=== PATIENT | male | born 1955 | race Caucasian/White ===

== ENCOUNTER 2016-12-16 08:41 | Day surgery (SDC) | payer BC ==
--- NOTE | 2016-12-16 17:25 | NUR ---
WILLA 1110: RN IN TO ASSIST W/BIOPTY BIOPSY. PT TOLERATES PROCEDURE WELL AND IS DC HOME AMBULATORY AFTER VERBAL DC INSTRUCTIONS ARE GIVEN.
--- NOTE | 2016-12-20 08:06 | OR ---
[facility] [address], [place] [address] Signed DATE OF OPERATION: 12/16/2016 SURGEON: Meche Rodgers MD PREOPERATIVE DIAGNOSIS: Left pectoral soft tissue mass (giant). 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 PROCEDURE: Core biopsy of left chest wall mass. SURGEON: Meche Rodgers MD ANESTHESIA: 1% lidocaine with epinephrine. INDICATION: This 61-year-old white man is a patient of Dr. Blade Andersen, in [facility]. In 2010, he had a soft tissue mass to his left parasternal area for which ultrasound was performed at [facility] showing a 3 cm "lipoma." Over the time, the mass was enlarged. He has had increasing symptoms from it recently and was recognized by Dr. Andersen as having a very dense, very large left pectoral mass for which he was referred for further evaluation. Clinical appearance of the mass was consistent with sarcoma. A CT scan of the chest and abdomen was performed by mo recently, which confirmed the mass to be invasive to the sternum and intercostal spaces directly over the area of the heart. The mass is at least 19 cm in length and certainly is largest by hand spread open. It is quite dense and firm and certainly not mobile. He will be referred for definitive excision of the mass, which was almost certainly a sarcoma. A core biopsy will be obtained at this time to better guide treatment decisions and assess its histologic type. Most likely is malignant, but the possibility of a benign soft tissue mass remains. The risks of bleeding, infection so forth were reviewed with the patient. He understands and wished to proceed as I have described. FINDINGS: A dense mass was easily biopsied, 5 good cores of tissue were obtained. The puncture site was in the lateral aspect inferiorly. There was no untoward bleeding. Electronically Signed By: MECHE RODGERS MD 12/20/16 08 PATIENT NAME: GENE LEA OPERATIVE REPORT DATE OF : 59 PHYSICIAN: MECHE RODGERS MD REPORT #: [id number] REPORT IS CONFIDENTIAL AND NOT TO BE RELEASED WITHOUT AUTHORIZATION [facility] [address], [place] [address] Signed DESCRIPTION OF PROCEDURE: The patient was placed in the supine position in the day surgery area and the left pectoralis prepared with a chlorhexidine solution and draped sterilely. 1% lidocaine was injected locally. A small puncture incision was made with the tip of an 11-blade in the lateral inferior aspect of the mass. Using a bioptic and core biopsy device, a 14-gauge needle, 5 core biopsies were obtained. There was minimal bleeding. Good core specimens were obtained. The Band-Aid was applied. MD TOMAS Au/MODL /[id number] cc: Blade Andersen MD Electronically Signed By: MECHE RODGERS MD 12/20/16 0806 PATIENT NAME: GENE LEA OPERATIVE REPORT DATE OF : 59 PHYSICIAN: MECHE RODGERS MD REPORT #: [id number] REPORT IS CONFIDENTIAL AND NOT TO BE RELEASED WITHOUT AUTHORIZATION
[2017-02-11] MEDS ORDERED: ZOFRAN ODT8 MG PO (08:57)
[2017-02-11] MEDS ORDERED: PREDNISONE10 MG PO (08:57)
[2017-02-11] MEDS ORDERED: PROCHLORPERAZIN10 MG PO (08:59)
== END 2016-12-16 18:00 | disposition home or self-care (01) ==
LOC: DS 08:41 → EDSTATUS 10:00 → DS 18:00
PROC: 0KBJ3ZX Excision of Left Thorax Muscle, Percutaneous Approach, Diagnostic (ICD-10-PCS; principal; 2016-12-16)
DX: C85.12 Unspecified B-cell lymphoma, intrathoracic lymph nodes (principal); Z87.19 Personal history of other diseases of the digestive system; Z98.890 Other specified postprocedural states

== ENCOUNTER 2017-01-07 11:17 | Day surgery (SDC) | payer BC ==
[~2017-01-07] VITALS: Ht 182.9 cm; Wt 118.4 kg
--- NOTE | 2017-01-07 12:40 | NUR ---
01/07/17 Denny0 Amanda Weston 4568-PATIENT TRANSITIONED TO PACU CARE. PATIENT DROWSY AROUSABLE. 4L NC O2 SAT 99% PATIENT LAYING ON STOMACH USUALLY HAS PAIN IN AREA BUT FEELS COMFORTABLE. DRESSING TO RIGHT POSTERIOR BACK CDI WITH BANDAID.
--- NOTE | 2017-01-14 10:13 | OR ---
[facility] [address] [place] [place] [address] Signed DATE OF OPERATION: 01/07/2017 SURGEON: Lloyd Winkler MD PROCEDURE: Left posterior iliac crest bone marrow biopsy and aspirate. DESCRIPTION OF PROCEDURE: After explaining the risks, benefits, and alternatives to bone marrow biopsy and aspiration under conscious sedation for staging of diffuse large B-cell lymphoma and obtaining an informed written consent, the patient was brought to a private area of the postanesthesia recovery unit, where a time-out was taken and the patient and procedure were correctly identified. He was placed in the prone position. The left posterior iliac crest was prepped and draped in the usual sterile manner. Conscious sedation was supplied by SOULEYMANE Liriano with 100 mcg of intravenous fentanyl and 3 mg of intravenous midazolam. Local anesthesia was obtained over the left posterior iliac crest with 1 mL of 1% lidocaine and a left posterior iliac crest bone marrow biopsy and aspirate were obtained without adverse affects. Lloyd Winkler MD RCQ/MODL /[id number] Electronically Signed By: LLOYD WINKLER MD 01/14/17 1013 PATIENT NAME: GENE LEA OPERATIVE REPORT DATE OF : 59 PHYSICIAN: LLOYD WINKLER MD REPORT #: [id number] REPORT IS CONFIDENTIAL AND NOT TO BE RELEASED WITHOUT AUTHORIZATION
[2017-02-11] MEDS ORDERED: PREDNISONE10 MG PO (08:57)
[2017-02-11] MEDS ORDERED: ZOFRAN ODT8 MG PO (08:57)
[2017-02-11] MEDS ORDERED: PROCHLORPERAZIN10 MG PO (08:59)
== END 2017-01-07 13:25 | disposition home or self-care (01) ==
LOC: DS 11:17
PROVIDERS: Specialist
PROC: 07DR3ZX Extraction of Iliac Bone Marrow, Percutaneous Approach, Diagnostic (ICD-10-PCS; principal; 2017-01-07 12:00)
DX: C83.32 Diffuse large B-cell lymphoma, intrathoracic lymph nodes (principal); Z98.890 Other specified postprocedural states
CPT/HCPCS: 80053; 82232; 83615; 85025; 99152; J2250; J3010; J7120

== ENCOUNTER 2017-01-14 06:50 | Day surgery (SDC) | payer BC ==
[~2017-01-14] VITALS: Ht 182.9 cm; Wt 113.4 kg
[2017-01-14] MEDS ORDERED: IBUPROFEN600 MG PO (09:58)
[2017-01-14] MEDS ORDERED: MAPAP325 MG PO (09:58)
[2017-01-14] MEDS ORDERED: OXYCODON-ACETA1 EAC2 PO (09:58)
--- NOTE | 2017-01-17 08:56 | OR ---
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 POSTOPERATIVE DIAGNOSIS: Chest wall lymphoma (mantle cell type). PROCEDURE: 1. Left subclavian Port-A-Cath placement. 2. Surgeon-directed fluoroscopy. SURGEON: Meche Rodgers MD ANESTHESIA: Local with monitored anesthesia care, Chris Wright CRNA and local anesthetic, 10 mL of 0.25% Marcaine with epinephrine. INDICATION: This 61-year-old white man is a patient of Dr. Blade Andersen from [place], [place]. He was noted to have a large chest wall mass in the left parasternal border area. This was highly suggestive to me of sarcoma. It was at least the size of my outstretched hand. A CT scan was performed confirming the mass eroding through the parasternal tissue, ribs and so forth. A core biopsy was performed, but proved not to be a sarcoma at all, but rather a mantle cell lymphoma. He has been seen by Dr. Marin and bone marrow biopsy obtained and other imaging studies undertaken as well. He is anticipating chemotherapy and possibly radiation therapy depending on staging. He is admitted at this time to undergo Port-A-Cath placement. Understand the risks of bleeding, infection, pneumothorax, failure of the device and other unforeseen complications. Understanding this, he wished to proceed. FINDINGS: Dark nonpulsatile blood was noted from the left subclavian vein. The catheter was placed without problem. The tip of the catheter was in the superior vena cava. Good function is noted with percutaneous access via the Amaya needle. A postprocedure chest x-ray was performed and was normal. Electronically Signed By: MECHE RODGERS MD 01/17/17 0856 PATIENT NAME: GENE LEA OPERATIVE REPORT DATE OF : 59 PHYSICIAN: MECHE RODGERS MD REPORT #: [id number] REPORT IS CONFIDENTIAL AND NOT TO BE RELEASED WITHOUT AUTHORIZATION [facility] [address] [place], [place] [address] Signed DESCRIPTION OF PROCEDURE: The patient was brought to the operating room, placed in supine position with the head turned to the right. The upper torso and neck were prepared with a chlorhexidine solution and draped sterilely. A 0.25% Marcaine with epinephrine was injected in the left infraclavicular space. Using the Seldinger technique, the left subclavian vein was easily accessed showing dark nonpulsatile blood. A flexible J-wire was passed down the needle. The needle was removed. Fluoroscopy was then performed, which confirmed the wire to be in the right heart system. Local anesthetic was injected transversely over the left pectoralis well away from the neoplasm area itself. A transverse incision was made and using blunt electrocautery dissection, the pocket was created using electrocautery. The site from which the wire emanated was incised with an 11-blade, dilated and subsequently dilator and peel-away sheath introducer passed over the wire. The wire and the dilator were removed showing vigorous retrograde nonpulsatile bleeding. A previously inspected and irrigated white Port-A-Cath single-lumen catheter was passed down the sheath, stabilized at the skin level and the peel-away introducer removed showing both portions to be equal in size. Aspiration on the catheter showed good return of blood and easy flushing. Under surgeon directed fluoroscopy, the catheter was withdrawn to the area of the superior vena cava. Small amount of contrast was used to infuse and confirm it. A tunneling device was used to deliver the catheter to the pocket. The catheter was trimmed to the appropriate length and secured per manufacture's instructions to the metal port device. It was secured well. Once completely secured, the catheter was secured to the pectoralis fascia with interrupted 2-0 Vicryl suture. The pocket was then closed with interrupted 2-0 Vicryl as well. The skin was closed with running subcuticular 3-0 Vicryl. Steri-Strips were applied to each site. Access of the port device with an angled Amaya needle showed easy withdrawal of blood and easy infusion of heparinized saline solution. A recovery room post procedure chest x-ray showed the tip of the catheter in the superior vena cava optimally placed. The wound was managed with Steri-Strips and a Mepilex silver sponge dressing and an OpSite. The catheter can be used at any time. Electronically Signed By: MECHE RODGERS MD 01/17/17 0856 PATIENT NAME: GENE LEA OPERATIVE REPORT DATE OF : 59 PHYSICIAN: MECHE RODGERS MD REPORT #: [id number] REPORT IS CONFIDENTIAL AND NOT TO BE RELEASED WITHOUT AUTHORIZATION [address] [address] Signed Meche Rodgers MD JM/MODL /[id number] cc: MD Luis Garcia MD Electronically Signed By: MECHE RODGERS MD 01/17/17 0856 PATIENT NAME: GENE LEA OPERATIVE REPORT DATE OF : 59 PHYSICIAN: MECHE RODGERS MD REPORT #: [id number] REPORT IS CONFIDENTIAL AND NOT TO BE RELEASED WITHOUT AUTHORIZATION
[2017-02-11] MEDS ORDERED: ZOFRAN ODT8 MG PO (08:57)
[2017-02-11] MEDS ORDERED: PREDNISONE10 MG PO (08:57)
[2017-02-11] MEDS ORDERED: PROCHLORPERAZIN10 MG PO (08:59)
== END 2017-01-14 11:05 | disposition home or self-care (01) ==
LOC: OPS 06:50 → DS 06:50 → OPS 08:45 → DS 10:45 → OPS 10:45
PROVIDERS: Surgery
PROC: B517YZA Fluoroscopy of Left Subclavian Vein using Other Contrast, Guidance (ICD-10-PCS; 2017-01-14)
PROC: 3E03305 Introduction of Other Antineoplastic into Peripheral Vein, Percutaneous Approach (ICD-10-PCS; 2017-01-14)
PROC: 05H633Z Insertion of Infusion Device into Left Subclavian Vein, Percutaneous Approach (ICD-10-PCS; principal; 2017-01-14 08:45)
DX: C83.10 Mantle cell lymphoma, unspecified site (principal); Z87.19 Personal history of other diseases of the digestive system; Z98.890 Other specified postprocedural states
CPT/HCPCS: 00532; 71010; 77001; J0690; J1644; J2704; J3010; J7120

== ENCOUNTER 2017-02-19 11:32 | Emergency (ER) | payer BC ==
[~2017-02-19] VITALS: Ht 182.9 cm; Wt 117.9 kg
[~2017-02-19 11:32] MED LIST: IBUPROFEN600 MG PO; MAPAP325 MG PO; OXYCODON-ACETA1 EAC2 PO; PREDNISONE10 MG PO; PROCHLORPERAZIN10 MG PO; ZOFRAN ODT8 MG PO
[2017-02-19] MEDS ORDERED: LOVENOX120 MG SUB-Q (14:43)
[2017-02-19] MEDS ORDERED: NORCO 5-325 TA1 EACH PO (14:43)
[2017-03-01] MEDS ORDERED: WARFARIN SODIUM5 MG PO (10:41)
[2017-03-11] MEDS ORDERED: ELIQUIS5 MG PO (08:59)
[2017-04-01] MEDS ORDERED: ONDANSETRON ODT8 MG PO (08:51)
[2017-04-01] MEDS ORDERED: PREDNISONE20 MG PO (08:53)
[2017-05-27] MEDS ORDERED: LEVAQUIN750 MG PO (13:58)
== END 2017-02-19 14:51 | disposition home or self-care (01) ==
LOC: ED 11:32
DX: I82.622 Acute embolism and thrombosis of deep veins of left upper extremity (principal); Z98.890 Other specified postprocedural states; Z91.018 Allergy to other foods; Z79.899 Other long term (current) drug therapy; Z79.52 Long term (current) use of systemic steroids
CPT/HCPCS: 71046; 80053; 85025; 85610; 85730; 93971; 96360; 96372; 99284; J1650; J7030

== ENCOUNTER 2025-01-29 05:37 | Day surgery (SDC) | payer MEDICARE, BC ==
[~2025-01-29] VITALS: Ht 182.9 cm; Wt 118.0 kg
[~2025-01-29 05:37] MED LIST changes: +ELIQUIS5 MG PO; +FERROUS SULFAT325 M2 PO; +LACTATED RINGER'S 1,000 ML IV SCH; +LEVAQUIN750 MG PO; +LOVENOX120 MG SUB-Q; +NORCO 5-325 TA1 EACH PO; +ONDANSETRON ODT8 MG PO; +PREDNISOLONE5 MG PO; +PREDNISONE20 MG PO; +WARFARIN SODIUM5 MG PO
[2025-01-29 06:01] VITALS: BP 110/67
[2025-01-29 06:41] LABS: BASOPHILS 0.8 % (0.2-1.2); BASOPHILS, ABSOLUTE 0.09 K/uL (0.01-0.08); EOSINOPHILS 4.7 % (0.8-7.0); EOSINOPHILS, ABSOLUTE 0.55 K/uL (0.04-0.54); LYMPHOCYTES 14.0 % (21.8-53.1); MCH 19.3 PG (25.7-32.2); MCHC 28.3 g/dL (32.3-36.5); MCV 68.3 fL (79.0-92.2); MONOCYTES 9.1 % (5.3-12.2); MONOCYTES, ABSOLUTE 1.07 K/uL (0.30-0.82); NEUTROPHILS 70.9 % (34.0-67.9); NEUTROPHILS, ABSOLUTE 8.39 K/uL (1.78-5.38); RBC 3.94 M/uL (4.63-6.08)
[2025-01-29] MEDS ORDERED: IBLOOD GLUCOSE TEST STRIP 1 EA TEST VI PRN ×2 (07:00→12:30)
[2025-01-29] MEDS ORDERED: HEParin SOD (PORCINE) 5,000 UNIT/ML SDV SUB-Q SCH (07:00)
[2025-01-29] MEDS ORDERED: LIDOCAINE HCL 1% 5 ML SDV INJ ONE (07:00)
[2025-01-29] MEDS ORDERED: CEFAZOLIN SODIUM 2 GM in SODIUM CHLORIDE 0.9% 100 ML IV SCH (07:00)
[2025-01-29] MEDS ORDERED: SODIUM CHLORIDE 0.9% 500 ML IV ONE (07:36)
--- NOTE | 2025-01-29 07:43 | NUR ---
PT AND PT UDPATED ON POC. PT AGREEABLE AT THIS TIME. MOVED TO A CLOSER ROOM TO NURSE STATION FOR OBSERVATION D/T THIS BEING FIRST BLOOD TRANSFUSION.
[2025-01-29 07:59] LABS: ABO A; RH POSITIVE
[2025-01-29 08:05] LABS: ABO A; ANTIBODY SCREEN NEGATIVE; IS CROSSMATCH COMPATIBLE; RH POSITIVE
--- NOTE | 2025-01-29 08:05 | NUR ---
VO RECEIVED FROM KOBY BRO FOR PREMEDICATION FOR BLOOD TRANSFUSION W/IV BENEDRYL. ORDER PLACED AND GIVEN.
--- NOTE | 2025-01-29 08:47 | NUR ---
PT BLOOD TRANSFUSION TITRATED TO 275 ML/HR. PT REPORTS NO SYMPTOMS AT THIS TIME.
--- NOTE | 2025-01-29 09:18 | NUR ---
IV BLOOD TITRATED TO 300 ML/HR, PT REPORTS NO SYMPTOMS.
--- NOTE | 2025-01-29 09:47 | NUR ---
PT 1ST UNIT COMPLETE. PT SITS AT BEDSIDE AND REPORTS NO DIZZINESS/NAUSEA. PT AMBULATES TO BATHROOM W/THIS RN STANDBY ASSIST. PT BACK TO BED W/WARM BLANKETS. PT REPORTS NO FURTHER NEEDS AT THIS TIME. CALL LIGHT WITHIN REACH.
--- NOTE | 2025-01-29 10:19 | NUR ---
2ND UNIT IV BLOOD ADMIN TITRATED TO 275 ML/HR. PT CONTINUES TO REPORT NO SYMPTOMS. CALL LIGHT WITHIN REACH.
--- NOTE | 2025-01-29 10:45 | NUR ---
PT ARRIVES AND UPDATED ON PT POC. PT WAITING IN HALLWAY. PT RESTING W/EYES CLOSED. RESPIRATIONS EVEN AND UNLABORED, NO SIGNS OF DISTRESS. CALL LIGHT WITHIN REACH. DOOR/CURTAIN OPEN. CPOX IN PLACE.
--- NOTE | 2025-01-29 11:43 | NUR ---
PT NOW BACK IN ROOM THAT BLOOD ADMIN AND BLOOD DRAW COMPLETE AT HER PREFERENCE. PT AT BEDSIDE. CALL LIGHT WITHIN REACH. PT AND PT STATE NO FURTHER NEEDS OR QUESTIONS AT THIS TIME.
[2025-01-29 12:00] LABS: BASOPHILS 0.9 % (0.2-1.2); BASOPHILS, ABSOLUTE 0.09 K/uL (0.01-0.08); EOSINOPHILS 5.5 % (0.8-7.0); EOSINOPHILS, ABSOLUTE 0.57 K/uL (0.04-0.54); LYMPHOCYTES 18.0 % (21.8-53.1); MCH 20.8 PG (25.7-32.2); MCHC 29.4 g/dL (32.3-36.5); MCV 70.7 fL (79.0-92.2); MONOCYTES 9.6 % (5.3-12.2); MONOCYTES, ABSOLUTE 1.00 K/uL (0.30-0.82); NEUTROPHILS 65.6 % (34.0-67.9); NEUTROPHILS, ABSOLUTE 6.84 K/uL (1.78-5.38); RBC 4.61 M/uL (4.63-6.08)
[2025-01-29] MEDS ORDERED: DEXAMETHASONE SOD PHOS 4 MG/ML VIAL ONE (12:11)
[2025-01-29] MEDS ORDERED: LIDOCAINE HCL 2% 5 ML SDV ONE (12:11)
[2025-01-29] MEDS ORDERED: ROCURONIUM BROMIDE 50 MG/5 ML SYR ONE (12:11)
[2025-01-29] MEDS ORDERED: fentaNYL citrate 100 MCG/2 ML VIAL ONE (12:11)
[2025-01-29] MEDS ORDERED: fentaNYL citrate 50 MCG/ML SDV IV PRN (12:30)
[2025-01-29] MEDS ORDERED: PROCHLORPERAZINE EDISYLATE 10 MG/2 ML VIAL IV PRN (12:30)
[2025-01-29] MEDS ORDERED: HYDROmorphone HCL 1 MG/ML SYR IV PRN (12:30)
[2025-01-29] MEDS ORDERED: NALOXONE HCL 0.4 MG SYR IV PRN ×2 (12:30→14:15)
[2025-01-29] MEDS ORDERED: SUGAMMADEX SODIUM 200 MG/2 ML ML ONE (13:15)
[2025-01-29 13:32] VITALS: BP 130/72
--- NOTE | 2025-01-29 14:01 | NUR ---
01/29/25 1401 Amanda Weston 1354-PATIENT ARRIVED TO PACU ON 6L MASK NONAROUSABLE ORAL AIRWAY IN PLACE. SR HR 60'S. IVF INFUSING. STERI STRIPS TO ABDOMEN 2 SITES.
[2025-01-29] MEDS ORDERED: OXYCODONE/APAP 7.5/325 TAB PO PRN (14:15)
[2025-01-29] MEDS ORDERED: IBUPROFEN 600 MG TAB PO PRN (14:15)
[2025-01-29] MEDS ORDERED: LACTATED RINGER'S 1,000 ML IV SCH (14:15)
[2025-01-29] MEDS ORDERED: ACETAMINOPHEN 500 MG TAB PO PRN (14:15)
[2025-01-29] MEDS ORDERED: OXYCODON-ACETA1 EAC2 PO (14:20)
[2025-01-29] MEDS ORDERED: ACETAMINOPHEN500 MG PO (14:20)
[2025-01-29] MEDS ORDERED: IBUPROFEN600 MG PO (14:20)
--- NOTE | 2025-01-29 14:45 | NUR ---
PT BACK TO DS FROM PACU VIA STRETCHER. PT IS DROWSY, BUT RESPONSIVE TO VERBAL STIMULI WITHOUT DIFFICULTY. PT AT BEDSIDE. REPORT RECEIVED FROM DEBORAH RN, SITES VISUALIZED W/DEBORAH COMER. PT REPORT PAIN TOLERABLE, BUT ACHEY IN BELLY BUTTON AREA. ICE PACK PROVIDED. SITES REINFORCED WITH GAUZE AND PAPER TAPE. PT TOLERATING SIPS OF ICE WATER WITHOUT DIFFICULTY. CALL LIGHT WITHIN REACH, PT REPORTS NO FURTHER NEEDS OR QUESTIONS AT THIS TIME.
[2025-01-29 14:48] VITALS: BP 114/96
[2025-01-29 15:47] VITALS: BP 113/70
--- NOTE | 2025-01-29 15:55 | NUR ---
IN PT ROOM FOR VS AND ASSESSMENT. PT REPORTS PAIN HAS INCREASED AND WOULD LIKE PRN PAIN MED. PT REPORTS HE DOES NOT WANT OPIOID, AGREED TO PRN TYLENOL. GIVEN (SEE EMAR). PT REPORTS ICE PACK NOT HELPING, REMOVED. PT REPORTS NOT WANTING ANYTHING TO EAT AT THIS TIME OR ANYTHING TO DRINK BESIDES WATER. PT STATES NO URGE TO URINE VOID YET, "BUT GETTING THERE". CALL LIGHT WITHIN REACH, PT AND PT STATE NO FURTHER NEEDS OR QUESTIONS AT THIS TIME.
--- NOTE | 2025-01-29 16:15 | NUR ---
ANSWERED PT CALL LIGHT. PT REPORTS URGE TO URINE VOID. PT SITS AT BEDSIDE AND REPORTS NO DIZZINESS OR NAUSEA. PT STANDS AND THIS RN STANDBY ASSIST TO RESTROOM. PT STATES IT FEELS BETTER FOR HIS PAIN TO STAND UP AND WALK. URINE VOID OF 400 ML CLEAR/YELLOW URINE. PT GETTING DRESSED AT THIS TIME W/ ASSISTANCE. CALL LIGHT WITHIN REACH.
[2025-01-29] MEDS ORDERED: SEVOFLURANE 250 ML BTL INH ONE (16:21)
--- NOTE | 2025-01-29 16:30 | NUR ---
IN PT ROOM FOR DC EDUCATION, ASSESSMENT, AND VS. PT AND PT STATE VERBAL UNDERSTANDING OF DC EDUCATION AT THIS TIME. DEMONSTRATION OF PLACING GAUZE/PAPER TAPE ON TOP OF LEAKY INCISION SITES PERFORMED, PT AND PT STATE VERBAL UNDERSTANDING, SUPPLIES PROVIDED. PT OFF OF UNIT VIA WC TO PASSENGER SIDE OF VEHICLE. ALL BELONGINGS IN PT POSSESSION AT THIS TIME. PT AND PT STATE NO FURTHER NEEDS.
[2025-01-29 16:31] VITALS: BP 114/64
--- NOTE | 2025-01-29 18:38 | CONS ---
[facility] [address] [place], [place] [address] Signed DATE OF CONSULTATION: 01/29/2025 ISSUE: Anemia. HISTORY OF PRESENT ILLNESS: This 69-year-old white man is planned for laparoscopic liver biopsy this morning. He was noted by dull coat mill operator, Joseph Wallace CRNA to have a slightly decreased hemoglobin from his more recent preoperative hemoglobin of 8.4, now 7.1. The patient has persistent fatigue. He is known to have metastatic disease and a prior history of lymphoma. Liver biopsy had been planned as he has large lesions of the liver and the source of the lesions is uncertain whether lymphoma or another primary neoplasm. In September, he underwent colonoscopy by Dr. Brady, which was said to be normal. It is also noted that he was in the emergency room at [facility] in [place] on January 21 with similar issues of fatigue. The patient looks reasonably well at this time. He is not in particular distress, but certainly has some amount of fatigue. Upon further questioning, he does note that sometimes he sees a small amount of blood in the stool. This was not apparent previously nor mentioned but consideration is made that perhaps he does have a gastric manifestation of neoplasia that is accounting not only for metastatic disease, but for his anemia. On that basis, we have modified our plan for this morning; we will transfuse 2 units of packed red cells and plan for upper endoscopy. If upper endoscopy demonstrates a neoplastic lesion, then biopsies there will be obtained likely solving the mystery of his hepatic metastases and other areas of probable metastatic disease. If it is normal, consideration would then be made for laparoscopic liver biopsy as previously planned. Discussed this with the patient and his and of course, the dull coat mill operator, all are in agreement. Additionally, I did discuss with the patient the risk of transfusions, which include transfusion reaction and infectious complications; these are rather unlikely in the modern age, but are still worthy of consideration. He and his understand this and wished to proceed. He does note he has never had transfusion in the past. Meche Rodgers MD Electronically Signed By: MECHE RODGERS MD 01/29/25 1838 PATIENT NAME: GENE LEA CONSULTATION DATE OF : 59 REPORT #: [id number] PHYSICIAN: MECHE RODGERS MD PCP: EMANI OSWALD MD REPORT IS CONFIDENTIAL AND NOT TO BE RELEASED WITHOUT AUTHORIZATION [facility] [address] [facility] [place] [address] Signed TOMAS/CLAUDIA /[id number] Copies: ~ Electronically Signed By: MECHE RODGERS MD 01/29/25 1838 PATIENT NAME: GENE LEA CONSULTATION DATE OF : 59 REPORT #: [id number] PHYSICIAN: MECHE RODGERS MD PCP: EMANI OSWALD MD REPORT IS CONFIDENTIAL AND NOT TO BE RELEASED WITHOUT AUTHORIZATION
--- NOTE | 2025-01-29 18:38 | OR ---
[facility] [address], [place] [address] Signed DATE OF OPERATION: 01/29/2025 SURGEON: Meche Rodgers MD PREOPERATIVE DIAGNOSES: 1. Metastatic lesions, right lobe of liver. 2. History of lymphoma (left parasternal 2017, in remission). 3. Anemia with heme-positive stool. POSTOPERATIVE DIAGNOSES: 1. No evidence of esophageal gastric or duodenal lesion. 2. Hepatic lesions with sparing of left lateral segment of liver. 3. Cecal mass. PROCEDURES: 1. Upper endoscopy without biopsy. 2. Laparoscopy with evaluation of the peritoneal cavity including percutaneous core liver biopsy x2. ANESTHESIA: General endotracheal, Joseph Wallace CRNA and local 10 mL of 0.25% Marcaine with epinephrine. INDICATION: This 69-year-old white man is known to me from the past and now a patient of Dr. Emani Andersen. He was diagnosed with a left parasternal B-cell lymphoma for which he underwent therapy with complete resolution of his problem. He was noted to be anemic and underwent colonoscopy by Dr. Lloyd Brady, local surgeon in September of 2024. He had bright red blood per rectum. Evaluation included colonoscopy and hyperplastic polyp noted at 40 cm. Review of notes show that the cecum was intubated and the appendiceal orifice noted to be normal. A recent CT scan in addition to his evaluation for anemia showed metastatic lesions to the right lobe of the liver without sign of carcinomatosis or other intraabdominal abnormality. There is thought to be a dome of the liver mass 6.9 cm in size and a mass in the posterior segment of the right lobe 3.9 cm in size. The gallbladder was considered normal. He is scheduled today for laparoscopic liver biopsy to better guide further evaluation and therapy. Upon presentation today, he was noted to be more symptomatic with his anemia with Electronically Signed By: MECHE RODGERS MD 01/29/25 1838 PATIENT NAME: GENE LEA OPERATIVE REPORT DATE OF : 59 REPORT #: [id number] PHYSICIAN: MECHE RODGERS MD PCP: EMANI ANDERSEN MD REPORT IS CONFIDENTIAL AND NOT TO BE RELEASED WITHOUT AUTHORIZATION [facility] [address], [place] [address] Signed hemoglobin of only 7.1. He also was noted to have some blood per rectum. On that basis, plan was changed modestly. 2 units of blood were transfused with a hematocrit now of 32 and a plan made for upper endoscopy to be followed by laparoscopy with liver biopsy should there be no lesion of the stomach or elsewhere upper endoscopy to have been found. The patient and his understand the risk of bleeding, infection, perforation related to endoscopy, and so forth and wished to proceed. FINDINGS: Upper endoscopy showed no lesion to account for anemia at all. The esophagus, stomach and duodenum were normal. On laparoscopy, there was no evidence of carcinomatosis or ascites. There were small metastatic lesions of the medial segment of the left lower liver as well as inferior aspect of right lobe of the liver and a more bulky inferior posterior lesion of the right lobe of the liver. The large bulky lesion of the "dome" was not visualized by laparoscopy. Biopsy of the medial segment nodule was undertaken as well as one of the right lobe small nodules. Additional examination showing tethering in the region of the mesentery of the cecum and right colon and a lesion extrinsic to the colon on that side as well. The appendix itself was normal as was the ileum. With the use of the "Endo finger" palpation of a bulky mass at the cecum was identified including the mesentery. 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 DESCRIPTION OF PROCEDURE: The patient was brought to the operating room in the supine position, given intravenous sedation with propofol infusional technique. A bite block was placed and an Olympus video upper endoscope passed in the hypopharynx. Vocal cords were normal. The scope was advanced to the esophagus throughout its length, it was normal. Scope was passed to the stomach, which was insufflated with air, showing no sign of lesion at all. The pylorus and the duodenum were normal. Scope was passed through showing duodenum to be entirely normal as was the stomach. Retroflexed view was normal as well. The scope was straightened, withdrawn and close inspection of the esophagus showed no other abnormality. Air was suctioned free to plan for a laparoscopic evaluation. The patient was then given intravenous Ancef anticipating laparoscopy after all. Sequential compression device stockings were already in place. The abdomen was clipped and prepared with chlorhexidine solution and draped sterilely. An infraumbilical incision was made and using an open Cece cannula technique, pneumoperitoneum was achieved to a level of 14 mmHg of carbon dioxide gas. Intra-abdominal inspection showed no sign of ascites or carcinomatosis. A single whitish 1 cm lesion was noted in the medial segment left lobe of the liver on the surface. The dome of the liver was not fully visualized, but showed no sign of abnormality. A 5 mm epigastric port was then Electronically Signed By: MECHE RODGERS MD 01/29/25 1838 PATIENT NAME: GENE LEA OPERATIVE REPORT DATE OF : 59 REPORT #: [id number] PHYSICIAN: MECHE RODGERS MD PCP: EMANI ANDERSEN MD REPORT IS CONFIDENTIAL AND NOT TO BE RELEASED WITHOUT AUTHORIZATION [facility] [address], [place] [address] Signed placed and with manipulation of the right lobe of the liver, a single white like lesion of the inferior aspect of the right lobe was identified, not far from a bulkier, but far more posterior obvious neoplastic lesion. Close inspection of the perineum showed no sign of carcinomatosis proper. A 14-gauge Biopty gun type needle was passed under direct visualization after a small stab wound in the upper abdominal area and under direct visualization, the lesion of the medial segment left lobe of the liver was biopsied. Two core biopsies were obtained of that. There was minimal bleeding if any. Attention was then turned towards the lesion in the inferior aspect of the right lobe. Through a separate stab incision, a similar biopsy was undertaken. This area had slightly more bleeding. On that basis, an additional right-sided 5 mm port was placed allowing for good visualization of the site. The bleeding had abated by this point. Irrigation was undertaken. A more bulky lesion was noted next to it as had previously been seen, but was a bit too deep and inferior to safely biopsy given its location likely in relation to the vena cava. Once hemostasis was assured, intra-abdominal inspection was undertaken more fully including the right side of the abdomen. The table was taken out of the reverse Trendelenburg [id number] position to be head-down and [id number]. Two hand manipulation in the right colon showed what appeared to be bulkiness to the cecal area. The appendix was identified, elevated and found to be normal and a portion of the ileum similarly normal. It appeared to be a stellate like contraction of mesentery in relation to the right colon. The area was rather fatty, so it was not distinct. 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 The trocar sites were inspected upon removal of the trocars, showing no sign of bleeding. Percutaneous digital examination of the right lower quadrant was undertaken with an "Endo finger," which did prove a bulky lesion not fixed to the retroperitoneum, but including mesentery to the cecum. Plans were then made for closure. The infraumbilical fascial incision was reapproximated with interrupted 0 Vicryl suture. 10 mL of 0.25% Marcaine with epinephrine was injected locally and the skin closed with interrupted 3-0 Vicryl. Steri-Strips were applied. He was ultimately extubated and transferred to the recovery room in good condition having suffered no complication. Sponge, needle, and instrument counts were reported as correct x3. Electronically Signed By: MECHE RODGERS MD 01/29/25 1838 PATIENT NAME: GENE LEA OPERATIVE REPORT DATE OF : 59 REPORT #: [id number] PHYSICIAN: MECHE RODGERS MD PCP: EMANI ANDERSEN MD REPORT IS CONFIDENTIAL AND NOT TO BE RELEASED WITHOUT AUTHORIZATION [address] [address] Signed MD TOMAS Au/CLAUDIA /[id number] cc: DO Lloyd Rodriguez MD Russel J Nichols, MD Copies: LLOYD BRADY ROBERT C MD NICHOLS, RUSSEL J MD ~ Electronically Signed By: MECHE RODGERS MD 01/29/25 1838 PATIENT NAME: GENE LEA OPERATIVE REPORT DATE OF : 59 REPORT #: [id number] PHYSICIAN: MECHE RODGERS MD PCP: EMANI ANDERSEN MD REPORT IS CONFIDENTIAL AND NOT TO BE RELEASED WITHOUT AUTHORIZATION
[2025-02-01 15:33] LABS: CHROMOGRANIN IN SERUM 32 ng/mL (0-187)
[2025-02-14] MEDS ORDERED: FERROUS GLUCON324 M2 PO (16:26)
[2025-02-14] MEDS ORDERED: PREDNISONE5 MG PO (16:26)
[2025-02-16] MEDS ORDERED: ACETAMINOPHEN500 MG PO (14:02)
[2025-02-17] MEDS ORDERED: LIDOCAINE1 EACH TD (14:19)
== END 2025-01-29 16:35 | disposition home or self-care (01) ==
LOC: DS 05:37
PROVIDERS: Nurse Anesthetist, Certified Registered; ATTEND Surgery
PROC: 0DJ08ZZ Inspection of Upper Intestinal Tract, Via Natural or Artificial Opening Endoscopic (ICD-10-PCS; principal; 2025-01-29 07:30)
PROC: 0FB04ZX Excision of Liver, Percutaneous Endoscopic Approach, Diagnostic (ICD-10-PCS; 2025-01-29 07:30)
DX: C78.7 Secondary malignant neoplasm of liver and intrahepatic bile duct (principal); C80.1 Malignant (primary) neoplasm, unspecified; C85.10 Unspecified B-cell lymphoma, unspecified site; Z91.018 Allergy to other foods; K92.1 Melena; D64.9 Anemia, unspecified
CPT/HCPCS: 00813; 36415; 36430; 82378; 85025; 85060; 86316; 86850; 86900; 86901; 86922; 88307; 88341; 88342; A9270; J0688; J1100; J1200; J1644; J2003; J2405; J2704; J3010; J3490; J7121; P9016